=== PATIENT | female | born 1950 | race Caucasian/White ===

== ENCOUNTER 2018-04-28 11:35 | Outpatient (CLI) | payer MEDICARE ==
--- NOTE | 2018-04-28 13:51 | RAD ---
FOUR VIEWS LEFT KNEE: Indication: Knee pain. Comparison: None. FINDINGS: There are small marginal osteophytes affecting the mediofemoral tibial and patellofemoral compartment . No acute fracture or subluxation is grossly evident. There is mild joint capsular distention. IMPRESSION: 1. Mild joint capsular distention without evidence of acute osseous abnormality. 2. Mild osteoarthrosis of the left knee. POS: [facility]
== END 2018-04-28 11:36 | disposition home or self-care (01) ==
LOC: SCSRAD 11:35
PROVIDERS: ATTEND Nurse Practitioner Family
DX: M25.561 Pain in right knee (principal); M17.12 Unilateral primary osteoarthritis, left knee; M25.862 Other specified joint disorders, left knee

== ENCOUNTER 2019-02-02 07:48 | Outpatient (CLI) | payer MEDICARE ==
--- NOTE | 2019-02-02 11:20 | MRI ---
MRI OF THE LEFT KNEE: Date: 02/02/19 PROVIDED CLINICAL HISTORY: Left knee pain. FINDINGS: The anterior cruciate ligament, posterior cruciate ligament, medial collateral ligament, and lateral collateral ligamentous complex demonstrate an intact MR appearance, as does the extensor mechanism. T here is an ill-defined and somewhat irregular appearance to the distal aspects of the popliteus tendo n near its femoral attachment. There is nondisplaced complex tearing involving the body of the lateral meniscus. The medial meniscus demonstrates no evidence for tear. Articular cartilage thinning is noted involving the central and p osterior aspects of the lateral femoral condyle with areas of probable full thickness articular carti renae loss. Articular cartilage appears otherwise preserved. There is a mild to moderate knee joint effusion with Gloria's cyst formation. No focal concerning regional marrow or muscular signal abnormality apparent. IMPRESSION: 1. Complex body lateral meniscal tear. 2. Tendinosis and/or partial tearing involving the terminal popliteus tendon. POS: OFF
== END 2019-02-02 07:49 | disposition home or self-care (01) ==
LOC: SCSMRI 07:48
PROVIDERS: ATTEND Orthopaedic Surgery
DX: M17.12 Unilateral primary osteoarthritis, left knee (principal); S83.272A Complex tear of lateral meniscus, current injury, left knee, initial encounter

== ENCOUNTER 2019-02-21 10:43 | Outpatient (CLI) | payer MEDICARE ==
[2019-02-21 12:09] LABS: Hemoglobin 13.1 g/dL (12.0-16.0); Mean Corpuscular HGB CONC 33.5 g/dL (32.0-36.0); Mean Corpuscular Hemoglobin 29.5 pg (27.0-31.0); Mean Corpuscular Volume 87.9 fL (78.0-98.0); Mean Platelet Volume 7.4 fL (7.4-10.4); Platelet Count 255 thou/uL (130-400); RBC Distribution Width 13.6 % (11.5-14.5); Red Blood Cell (RBC) Count 4.45 mill/uL (4.20-5.40); White Blood Cell (WBC) Count 6.5 thou/uL (4.8-10.8)
[2019-02-21 12:20] LABS: Anion Gap 14 mmol/L (10-20); BUN (Urea Nitrogen) 23 mg/dL (9.8-20.1); Calc. Creatinine Clearance 0 mL/min (70-130); Calcium 10.5 mg/dL (7.8-10.44); Carbon Dioxide 27 mmol/L (23-31); Chloride 104 mmol/L (98-107); Estimated GFR-MDRD 65; Glucose 100 mg/dL (80-115); Potassium 4.9 mmol/L (3.5-5.1); Sodium 140 mmol/L (136-145)
== END 2019-02-21 10:44 | disposition home or self-care (01) ==
LOC: LABBT 10:43
PROVIDERS: ATTEND Orthopaedic Surgery
DX: Z01.812 Encounter for preprocedural laboratory examination (principal); S83.242A Other tear of medial meniscus, current injury, left knee, initial encounter
CPT/HCPCS: 80048; 85027

== ENCOUNTER 2019-02-23 05:51 | Day surgery (SDC) | payer MEDICARE ==
[2019-02-21 11:03] VITALS: BMI 22.4
[2019-02-23] MEDS ORDERED: Fentanyl 100 MCG/2 ML VIAL ONE (05:59)
[2019-02-23] MEDS ORDERED: Midazolam HCl 2 mg/2 ml Vial ONE (06:23)
[2019-02-23] MEDS ORDERED: PROPOFOL 20 ML ONE (06:23)
[2019-02-23] MEDS ORDERED: ceFAZolin Sodium (SDC) 2 GM/100 ML BAG ONE (06:24)
--- NOTE | 2019-02-23 10:12 | OP ---
DATE OF PROCEDURE: 02/23/2019 PREOPERATIVE DIAGNOSES: Left knee lateral meniscal tear. POSTOPERATIVE DIAGNOSES: 1. Left knee lateral meniscal tear. 2. 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 She also has some significant synovitic changes in the lateral gutter. PROCEDURES PERFORMED: 1. Left knee arthroscopy with partial lateral meniscectomy. 2. Debridement and shaving of the unstable chondral flaps as well as synovitis, lateral gutter. TELEVISION MAINTENANCE WORKER: None. ESTIMATED BLOOD LOSS: Minimal. COMPLICATIONS: None. ANESTHESIA: She had general anesthetic as well as a local knee block. DISPOSITION: She did go to recovery room in stable condition. INDICATIONS: Active 68-year-old female, who has failed nonoperative treatment including 2 steroid injections as well as a hyaluronic acid injection for left knee pain. At this time, she opted to have surgery. DESCRIPTION OF PROCEDURE: After all appropriate consent forms were explained and signed, she was taken to the operating room and at this time was given general anesthetic. Once the level of anesthesia was appropriate, a tourniquet was placed on the left thigh and leg was then prepped and draped in standard surgical fashion. Limb was exsanguinated and the tourniquet was taken to 300 mmHg. An anterolateral portal was established. Scope was placed into the knee joint. A needle localization technique was then used to make a medial working portal. Diagnostic arthroscopy commenced in the notch. The ACL and PCL were probed, found to be intact. The medial compartment was evaluated. There were some grade 2 changes on the medial femoral condyle. The tibial plateau was in good condition. The medial meniscus was in good condition. Laterally, we had some grade 2 and even maybe started to get to the grade 3 on the tibial plateau. There were some small unstable chondral flaps. These were taken down as stable base. The patient did have significant tear with some flaps in the posterior horn as well as the body as well as anterior horn. Using a combination of meniscal biter and shaver, this was taken back to a stable base, leaving all remaining viable tissue. At this time, the gutters were swept through medially, look good laterally. There were no loose bodies. Though, she did have some significant synovitic change, which was removed with a shaver and the patellofemoral joint was evaluated and found to be in good condition. At this time, the scope was removed. Knee was drained and the portals were closed with simple nylon stitch. Bulky sterile dressing was applied. Tourniquet was let down. Toes pinked up nicely. The patient was then awakened. She was taken to recovery room in stable condition. All counts were correct at the end of the case and she did receive preoperative IV antibiotics. Job ID: [id number]
== END 2019-02-23 10:30 | disposition home or self-care (01) ==
LOC: SDC 05:51 → EEVIPCON 10:30
PROVIDERS: ATTEND Orthopaedic Surgery
PROC: 0SBD4ZZ Excision of Left Knee Joint, Percutaneous Endoscopic Approach (ICD-10-PCS; principal; 2019-02-23)
DX: S83.282A Other tear of lateral meniscus, current injury, left knee, initial encounter (principal); M17.12 Unilateral primary osteoarthritis, left knee; M94.262 Chondromalacia, left knee; M65.9 Synovitis and tenosynovitis, unspecified; F32.9 Major depressive disorder, single episode, unspecified; Z79.82 Long term (current) use of aspirin; Z79.899 Other long term (current) drug therapy; Z88.5 Allergy status to narcotic agent; Z91.041 Radiographic dye allergy status; Z91.018 Allergy to other foods
CPT/HCPCS: J0690; J2250; J2704; J3010

== ENCOUNTER 2020-05-16 06:10 | Outpatient (CLI) | payer MEDICARE ==
[2020-05-16 16:59] LABS: Bilirubin Neg (Negative); Blood, Urine 10 (Negative); Clarity Clear (Clear); Glucose, Urine (Dipstick) Normal (Negative); Ketone, Urine Negative (Negative); Leukocyte Negative (Negative); Nitrite Negative (Negative); Protein, Urine (Dipstick) Negative (Neg-Trace); Urobilinogen Normal mg/dL (Less than 2)
[2020-05-16 17:30] LABS: Bacteria/HPF None Seen HPF (None Seen); RBC/HPF 0-3 HPF (0-3); Squamous Epithelial None Seen HPF (0-3); WBC/HPF None Seen HPF (0-3)
[2020-05-16 17:31] LABS: Prothrombin Time 10.3 sec (9.5-12.1)
[2020-05-16 18:12] LABS: Anion Gap 17 mmol/L (10-20); BUN (Urea Nitrogen) 20 mg/dL (9.8-20.1); Calc. Creatinine Clearance 0 mL/min (70-130); Calcium 9.5 mg/dL (7.8-10.44); Carbon Dioxide 24 mmol/L (23-31); Chloride 106 mmol/L (98-107); Estimated GFR-MDRD 71; Glucose 114 mg/dL (80-115); Potassium 4.6 mmol/L (3.5-5.1); Sodium 142 mmol/L (136-145)
[2020-05-16 18:31] LABS: #Basophils 0.1 10x3/uL (0.0-0.2); #Eosinphils 0.3 10x3/uL (0.0-0.5); #Monocytes 0.4 10x3/uL (0.0-1.1); #Neutrophils 3.8 10x3/uL (1.5-8.4); %Basophils 0.8 % (0.0-2.0); %Eosinophils 4.7 % (0.0-6.0); %Lymphocytes 30.1 % (18.0-47.0); %Monocytes 6.3 % (0.0-10.0); %Neutrophils 57.8 % (40.0-75.0); Hemoglobin 10.8 g/dL (12.0-16.0); Mean Corpuscular HGB CONC 31.3 G/DL (32.0-36.0); Mean Corpuscular Hemoglobin 24.9 PG (27.0-33.0); Mean Corpuscular Volume 79.7 fl (80.0-100.0); Mean Platelet Volume 9.7 fl (7.4-10.4); Platelet Count 263 10x3/uL (130-400); RBC Distribution Width 17.5 % (11.5-14.5); Red Blood Cell (RBC) Count 4.33 10x6/uL (3.90-5.20); White Blood Cell (WBC) Count 6.6 10x3/uL (4.5-11.0)
[2020-05-17 12:07] LABS: SARS-CoV-2 MS2 Positive; SARS-CoV-2 N Gene Negative; SARS-CoV-2 S Gene Negative; SARS-CoV-2 by NAA Not Detected (NotDetected); SARS-CoV-2 orf1ab Negative
--- NOTE | 2020-05-22 02:14 | EKG ---
Test Reason : PREOP Blood Pressure : / mmHG Vent. Rate : 064 BPM Atrial Rate : 064 BPM P-R Int : 168 ms QRS Dur : 088 ms QT Int : 428 ms P-R-T Axes : 004 061 046 degrees QTc Int : 441 ms Normal sinus rhythm Normal ECG No previous ECGs available Confirmed by VINNIE OBRIEN, EMILEE ([id number]) on 05/22/2020 2:14:31 AM Referred By: Nivia WESTFALL Confirmed By:EMILEE BIRMINGHAM MD
== END 2020-05-16 06:11 | disposition home or self-care (01) ==
LOC: LABBT 06:10
PROVIDERS: ATTEND Orthopaedic Surgery
DX: Z01.818 Encounter for other preprocedural examination (principal); M17.12 Unilateral primary osteoarthritis, left knee; Z20.828 Contact with and (suspected) exposure to other viral communicable diseases
CPT/HCPCS: 80048; 81001; 85025; 85610; 87081; 93005; U0003; 87635; 93010

== ENCOUNTER 2020-05-21 05:36 | Day surgery (SDC) | payer MEDICARE ==
[2020-05-18 10:57] VITALS: BMI 22.6
[2020-05-21] MEDS ORDERED: Vancomycin 1 GM/200 ML BAG ONE (06:09)
[2020-05-21] MEDS ORDERED: Sodium Chloride 0.9% 100 ML ONE (06:09)
[2020-05-21] MEDS ORDERED: Tranexamic Acid 1,000 MG/10 ML VIAL ONE ×2 (06:09→09:01)
[2020-05-21] MEDS ORDERED: Bupivacaine PF 0.5% 30 ML VIAL ONE ×2 (06:19→07:48)
[2020-05-21] MEDS ORDERED: Lidocaine 1% w/Epinephrine 1:100K 20 ML VIAL ONE (06:20)
[2020-05-21] MEDS ORDERED: Fentanyl 100 MCG/2 ML VIAL ONE ×3 (06:32→09:40)
[2020-05-21] MEDS ORDERED: Midazolam HCl 2 mg/2 ml Vial ONE (06:32)
[2020-05-21] MEDS ORDERED: Ropivacaine HCl/PF 250 ML in Premix Bag 1 BAG NERVE BLCK SCH (07:15)
[2020-05-21] MEDS ORDERED: Promethazine HCl 25 MG/ML VIAL IM PRN ×2 (07:15→08:59)
[2020-05-21] MEDS ORDERED: traMADol HCl 50 MG TAB PO PRN (07:15)
[2020-05-21] MEDS ORDERED: Zolpidem Tartrate 5 MG TAB PO PRN ×2 (07:15→08:59)
[2020-05-21] MEDS ORDERED: Ondansetron PF 4 MG/2 ML Vial IVP PRN (07:15)
[2020-05-21] MEDS ORDERED: HYDROcodone/Acetaminophen 5/325 mg Tablet PO PRN ×2 (07:15)
[2020-05-21] MEDS ORDERED: Fentanyl 100 MCG/2 ML VIAL SLOW IVP PRN (07:16)
[2020-05-21] MEDS ORDERED: diphenhydrAMINE 25 MG CAP PO PRN (08:59)
[2020-05-21] MEDS ORDERED: Acetaminophen 325 MG TAB PO PRN (08:59)
--- NOTE | 2020-05-21 09:20 | OP ---
DATE OF PROCEDURE: 05/21/2020 FAIRING MAN: Sterling Melissa PA-C. The commercial lending assistant surgeon was present throughout the procedure to include the approach, the placement of the implants, and the final closure of the knee. PREOPERATIVE DIAGNOSIS: Left knee osteoarthrosis with valgus deformity. POSTOPERATIVE DIAGNOSIS: Left knee osteoarthrosis with valgus deformity. PROCEDURE: Left total knee replacement using shopa pinless navigation system. ANESTHESIA: General anesthetic. She also had preoperative block. BLOOD LOSS: Minimal. COMPLICATIONS: None. TOURNIQUET TIME: DISPOSITION: Recovery room in stable condition. IMPLANTS: To the left knee include a shopa Triathlon total knee system. The femur was a size 4 cruciate-retaining femur. We used a size 3 primary tibial baseplate. We used a 3 x 9 mm CS X3 tibial-bearing and a symmetric 27 x 8 X3 patella. INDICATIONS: This is a 69-year-old female who underwent a left knee arthroscopy with partial lateral meniscectomy and debridement months ago and unfortunately this has failed to give her the relief she is looking for and at this time she opted to have her left knee replaced. PROCEDURE IN DETAIL: After all appropriate consent forms were explained and signed, the patient was taken back to the operating room and at this time was given general anesthetic. Once the level of anesthesia was appropriate, a well-padded tourniquet was placed on the left leg, and the leg was then prepped and draped in standard surgical fashion. The limb was exsanguinated and tourniquet taken up to 300 mmHg. Midline incision was made with a 10 blade down through the skin and subcutaneous tissue. Bovie electrocautery was used to coagulate any brisk venous bleeding. A new blade was used to make a medial parapatellar arthrotomy. Small subperiosteal release was performed medially and excess fat pad was removed. The knee was flexed up to gain access to the femur. The femur was navigated and distal femoral resection was made. Epicondylar access was used to align our sizing jig and this was pinned in place. We sized our femur to be a size 4 cruciate-retaining femur. 4:1 cutting block was applied and pinned. Anterior and posterior chamfer cuts were then made. We navigated out our proximal tibia and made our proximal tibial resection. Spreaders were used to remove any posterior osteophytes off the back of the femur as well as remaining meniscal tissue. A long alignment michelle was then used to achieve correct rotation of our tibial baseplate and size 3 primary tibial baseplate was chosen. This was pinned in place. We trialed the polyethylene and a 3 x 9 mm CS X3 tibial-bearing polyethylene gave us full extension and good stability throughout range of motion. Two towel clips and a saw were used to cut our patella. Three lug nuts were drilled and a symmetric 27 x 8 X3 patella was trialed which sat nicely in the trochlear groove. We then drilled our femur and punched our tibia. All components were removed. The knee was thoroughly irrigated and dried. Cement was mixed into the cement gun on the back table. Components were then placed. The knee was held out in full extension until the cement had dried. All excess bone cement was removed. Multiple #2 Vicryl stitches as well as a Quill were used to close our extensor mechanism. 0 Quill followed by a running Monoderm was then used to close the skin. Surgicel glue was then used on the skin. Once this had dried, soft tissue dressing was applied to the limb, tourniquet was let down, and the toes pinked up nicely. The patient was then awakened and taken to the recovery room in stable condition. All counts were correct at the end of the case. The patient did receive preoperative IV antibiotics. The patient was injected with Marcaine for postoperative pain relief. Job ID: [id number]
[2020-05-21] MEDS ORDERED: Ondansetron HCl/PF 4 MG/2 ML Vial IVP PRN (10:00)
[2020-05-21] MEDS ORDERED: Promethazine HCl 25 MG/ML VIAL IM/IV PRN (10:00)
[2020-05-21] MEDS ORDERED: Non-Formulary Medication 1 EACH PO PRN (10:00)
[2020-05-21] MEDS ORDERED: Promethazine HCl 25 MG/ML VIAL ONE (10:38)
[2020-05-21] MEDS ORDERED: Promethazine HCl 25 MG/ML VIAL SLOW IVP PRN (10:44)
[2020-05-21] MEDS ORDERED: Scopolamine 1.5 mg/72 hour Patch ONE ×2 (10:45→10:47)
[2020-05-21] MEDS ORDERED: HYDROcodone/Acetaminophen 10/325 mg Tablet PO PRN ×2 (10:45)
[2020-05-21] MEDS ORDERED: Scopolamine 1.5 mg/72 hour Patch TOP SCH (11:00)
--- NOTE | 2020-05-21 11:01 | RAD ---
XR Knee Lt 2 View History: Knee arthroplasty Comparison: Radiograph 2019 Findings: Satisfactory appearance left knee arthroplasty and patellar resurfacing. Expected postopera tive gas and edema. Impression: Satisfactory postoperative appearance.
[2020-05-21] MEDS: Ketorolac Tromethamine 30 MG/ML VIAL IVP SCH ×3 (11:52→23:01)
[2020-05-21] MEDS: Aspirin 81 mg Enteric Coated Tablet PO SCH ×2 (13:24→21:40)
[2020-05-21] MEDS: CEFAZOLIN 2 GM in Premix Bag 1 BAG IVPB SCH ×2 (13:47→21:39)
[2020-05-21] MEDS ORDERED: Dexamethasone 20 MG/5 ML VIAL ONE (14:25)
[2020-05-21] MEDS ORDERED: Lidocaine 1% PF 5 ML VIAL ONE (14:25)
[2020-05-21] MEDS ORDERED: Ketorolac Tromethamine 30 MG/ML VIAL ONE (14:25)
[2020-05-21] MEDS ORDERED: Ropivacaine 0.2% HCl/PF (40 MG/20 ML VIAL) ONE (14:25)
[2020-05-21] MEDS ORDERED: Ondansetron PF 4 MG/2 ML Vial ONE (14:25)
[2020-05-21] MEDS ORDERED: PROPOFOL 200 MG/20 ML VIAL ONE (14:25)
[2020-05-21] MEDS ORDERED: Bupivacaine HCl 0.5%/Epinephrine 1:200,000/PF 30 ml Vial ONE (14:25)
[2020-05-21] MEDS: Vancomycin 1 GM in Premix Bag 1 BAG IVPB SCH (21:38)
[2020-05-22] MEDS: CEFAZOLIN 2 GM in Premix Bag 1 BAG IVPB SCH (05:00)
[2020-05-22] MEDS: Ketorolac Tromethamine 30 MG/ML VIAL IVP SCH ×3 (05:00→17:54)
[2020-05-22 06:07] LABS: Hemoglobin 9.5 g/dL (12.0-16.0); Mean Corpuscular HGB CONC 32.1 g/dL (32.0-36.0); Mean Corpuscular Hemoglobin 26.1 pg (27.0-31.0); Mean Corpuscular Volume 81.4 fL (78.0-98.0); Mean Platelet Volume 7.6 fL (7.4-10.4); Platelet Count 201 thou/uL (130-400); RBC Distribution Width 15.6 % (11.5-14.5); Red Blood Cell (RBC) Count 3.62 mill/uL (4.20-5.40); White Blood Cell (WBC) Count 6.3 thou/uL (4.8-10.8)
[2020-05-22] MEDS: Vancomycin 1 GM in Premix Bag 1 BAG IVPB SCH (08:15)
[2020-05-22] MEDS: Ondansetron PF 4 MG/2 ML Vial IVP PRN (08:23)
[2020-05-22] MEDS: traMADol HCl 50 MG TAB PO PRN ×2 (08:24→17:53)
[2020-05-22] MEDS: Aspirin 81 mg Enteric Coated Tablet PO SCH ×2 (08:25→21:01)
[2020-05-22] MEDS: Senokot S 8.6-50 MG TAB PO SCH ×2 (08:28→21:01)
[2020-05-22] MEDS: Ferrous Gluconate 324 MG TAB PO SCH ×2 (08:29→18:00)
[2020-05-22] MEDS: Multivitamin W/ Minerals 1 TAB PO SCH (08:29)
--- NOTE | 2020-05-22 13:36 | PRG ---
DATE OF SERVICE: 05/22/2020 SUBJECTIVE: Destinee is a 69-year-old female, postop day #1 from left total knee arthroplasty. She is doing relatively well. She is comfortable and she is tolerating regular intake. OBJECTIVE: VITAL SIGNS: Temperature 98.4, pulse 65, respiratory rate 16, and blood pressure 108/70. GENERAL: She is alert and oriented to person, place, time, and situation, responsive and appropriate with examiner, conversive. LABORATORY DATA: Hemoglobin and hematocrit 9.5 and 29.5. IMPRESSION: A 69-year-old female, postop day #1 left total knee arthroplasty, doing well. PLAN: Continue to monitor for pain. Continue to follow for hemorrhage with considered repeat H and H in the morning as long as she does well with therapy. Expected discharge tomorrow. Job ID: [id number]
[2020-05-23] MEDS: Ketorolac Tromethamine 30 MG/ML VIAL IVP SCH ×2 (00:15→05:50)
[2020-05-23 05:55] LABS: Hemoglobin 9.1 g/dL (12.0-16.0); Mean Corpuscular Hemoglobin 25.8 pg (27.0-31.0); Mean Corpuscular Volume 80.8 fL (78.0-98.0); Mean Platelet Volume 7.6 fL (7.4-10.4); Platelet Count 187 thou/uL (130-400); RBC Distribution Width 15.6 % (11.5-14.5); Red Blood Cell (RBC) Count 3.53 mill/uL (4.20-5.40); White Blood Cell (WBC) Count 6.5 thou/uL (4.8-10.8)
[2020-05-23] MEDS: Ondansetron PF 4 MG/2 ML Vial IVP PRN (09:27)
[2020-05-23] MEDS: Multivitamin W/ Minerals 1 TAB PO SCH (09:33)
[2020-05-23] MEDS: Ferrous Gluconate 324 MG TAB PO SCH (09:33)
[2020-05-23] MEDS: Aspirin 81 mg Enteric Coated Tablet PO SCH (09:34)
[2020-05-23] MEDS: Senokot S 8.6-50 MG TAB PO SCH (09:34)
[2020-05-23] MEDS ORDERED: Estradiol 1 MG TAB PO SCH (10:00)
[2020-05-23 11:45] VITALS: BP 134/81; TEMP 97.6
[2020-05-24] MEDS ORDERED: Estradiol 1 MG TAB PO SCH (09:00)
== END 2020-05-23 14:47 | disposition home or self-care (01) ==
LOC: SDC 05:36 → SURG B 08:59 → SDC 05-23 14:47
PROVIDERS: ATTEND Orthopaedic Surgery
PROC: 0SRD0J9 Replacement of Left Knee Joint with Synthetic Substitute, Cemented, Open Approach (ICD-10-PCS; principal; 2020-05-21)
PROC: 8E0YXBZ Computer Assisted Procedure of Lower Extremity (ICD-10-PCS; 2020-05-21)
PROC: 3E0T3BZ Introduction of Anesthetic Agent into Peripheral Nerves and Plexi, Percutaneous Approach (ICD-10-PCS; 2020-05-21)
PROC: 3E0T3BZ Introduction of Anesthetic Agent into Peripheral Nerves and Plexi, Percutaneous Approach (ICD-10-PCS; 2020-05-21)
DX: M17.12 Unilateral primary osteoarthritis, left knee (principal); M21.062 Valgus deformity, not elsewhere classified, left knee; G89.18 Other acute postprocedural pain; F32.9 Major depressive disorder, single episode, unspecified; I25.10 Atherosclerotic heart disease of native coronary artery without angina pectoris; Z79.82 Long term (current) use of aspirin; Z79.899 Other long term (current) drug therapy; Z88.5 Allergy status to narcotic agent; Z91.012 Allergy to eggs; Z91.041 Radiographic dye allergy status; Z95.5 Presence of coronary angioplasty implant and graft
CPT/HCPCS: 20985; 27447; 64445; 64448; 73560; 85027; 97110; 97116 ×2; 97139 ×2; 97530 ×2; C1713; C1776; 36415; J0690; J1100; J1885; J2250; J2405; J2550; J2704; J2795; J3010; J3370; J3490; S0020